=== PATIENT | male | born 1955 | race Caucasian/White ===

== ENCOUNTER 2017-11-16 10:30 | Inpatient (IN) | payer OTHER ==
[~2017-11-16] VITALS: Ht 175.3 cm; Wt 96.2 kg
[~2017-11-16 10:30] MED LIST: CLONAZEPAM1 MG PO; COLACE100 MG PO; DEMEROL50 MG/ML IJ; DOCUSATE SODIU100 MG PO; PERCOCET 5/3251 TAB PO
[2017-11-16] MEDS ORDERED: COZAAR25 MG PO (13:37)
[2017-11-16] MEDS ORDERED: NABUMETONE750 MG PO (13:38)
[2017-11-24] MEDS ORDERED: NEURONTIN800 MG PO (14:26)
[2017-11-24] MEDS ORDERED: COLACE100 MG PO (14:26)
[2017-11-24] MEDS ORDERED: CLONAZEPAM1 MG PO (14:26)
[2017-11-24] MEDS ORDERED: PERCOCET 5-3251 EACH PO (14:26)
[2017-11-24] MEDS ORDERED: AMOX-CLAV 875-1 EACH PO (14:26)
== END 2017-11-25 14:46 | disposition home or self-care (01) | DRG 460 ==
LOC: O/R 11-24 05:25 → PED 11-24 05:25 → SURH 11-24 10:30 → PED 11-24 15:37
PROVIDERS: Orthopaedic Surgery Orthopaedic Surgery of the Spine
PROC: 0SG10AJ Fusion of 2 or more Lumbar Vertebral Joints with Interbody Fusion Device, Posterior Approach, Anterior Column, Open Approach (ICD-10-PCS; 2017-11-24)
PROC: 0ST20ZZ Resection of Lumbar Vertebral Disc, Open Approach (ICD-10-PCS; 2017-11-24)
PROC: 07DS3ZZ Extraction of Vertebral Bone Marrow, Percutaneous Approach (ICD-10-PCS; 2017-11-24)
PROC: 0SG10A0 Fusion of 2 or more Lumbar Vertebral Joints with Interbody Fusion Device, Anterior Approach, Anterior Column, Open Approach (ICD-10-PCS; principal; 2017-11-24 13:00)
DX: M47.26 Other spondylosis with radiculopathy, lumbar region (principal); M51.16 Intervertebral disc disorders with radiculopathy, lumbar region; M48.061 Spinal stenosis, lumbar region without neurogenic claudication; I10 Essential (primary) hypertension

== ENCOUNTER 2018-06-22 13:44 | Outpatient (CLI) | payer OTHER ==
[~2018-06-22 13:44] MED LIST changes: +AMOX-CLAV 875-1 EACH PO; +COZAAR25 MG PO; +NABUMETONE750 MG PO; +NEURONTIN800 MG PO; +PERCOCET 5-3251 EACH PO
== END 2018-06-22 13:54 | disposition home or self-care (01) ==
LOC: RAD 501 13:44
DX: M54.5 Low back pain (principal); M54.2 Cervicalgia; M79.672 Pain in left foot

== ENCOUNTER 2025-02-27 08:30 | Inpatient (IN) | payer OTHER ==
[~2025-02-27] VITALS: Ht 175.3 cm; Wt 97.5 kg
[2025-02-27 09:56] VITALS: BP 162/98
[2025-02-27] MEDS ORDERED: TAMS0.4C PO (09:56)
[2025-02-27] MEDS ORDERED: ATACAND16 MG PO (09:56)
[2025-03-05] MEDS ORDERED: PERCOCET 5-3251 EACH PO (10:09)
[2025-03-05] MEDS ORDERED: AMOX-CLAV 875-1 EACH PO (10:09)
[2025-03-05] MEDS ORDERED: MEDROLPACK PO (10:09)
[2025-03-05] MEDS ORDERED: NEURONTIN800 MG PO (10:10)
[2025-03-05] MEDS ORDERED: COLACE100 MG PO (10:10)
[2025-03-05] MEDS ORDERED: GABAPENTIN100 M2 PO (10:10)
[2025-03-05] MEDS ORDERED: ZOFRAN8 MG PO (10:10)
[2025-03-05] MEDS ORDERED: CEFAZOLIN SODIUM 1,000 MG VIAL ONE (11:45)
[2025-03-05] MEDS ORDERED: VANCOMYCIN HCL 1,000 MG VIAL ONE ×2 (11:45→14:00)
[2025-03-05] MEDS ORDERED: 0.9 % SODIUM CHLORIDE 1,000 ML IV SCH (12:00)
[2025-03-05] MEDS ORDERED: ENALAPRILAT DIHYDRATE 1.25 MG/ML VIAL IV PRN (12:00)
[2025-03-05] MEDS ORDERED: PROMETHAZINE HCL 50 MG/ML AMPUL IM PRN (12:00)
[2025-03-05] MEDS ORDERED: DOCUSATE SODIUM 100MG CAP PO SCH (13:00)
[2025-03-05] MEDS ORDERED: MORPHINE SULFATE 4 MG/ML CARTRIDGE IV SCH (13:00)
[2025-03-05] MEDS ORDERED: METHYLPREDNISOLONE ACETATE 80 MG/ML VIAL ONE (14:00)
[2025-03-05] MEDS ORDERED: METHYLPREDNISOLONE SOD SUCC 125 MG VIAL ONE (14:00)
[2025-03-05] MEDS ORDERED: CEFAZOLIN SODIUM 1,000 MG VIAL IV ONE (14:45)
[2025-03-05] MEDS ORDERED: METHYLPREDNISOLONE ACETATE 80 MG/ML VIAL IM ONE (14:45)
[2025-03-05] MEDS ORDERED: VANCOMYCIN HCL 1,000 MG VIAL IR ONE (14:45)
[2025-03-05] MEDS ORDERED: VANCOMYCIN HCL 1,000 MG VIAL SPEPROC ONE (14:45)
[2025-03-05] MEDS ORDERED: METHYLPREDNISOLONE SOD SUCC 125 MG VIAL IV ONE (14:45)
[2025-03-05] MEDS ORDERED: VANCOMYCIN HCL 1,000 MG VIAL IV ONE (14:45)
[2025-03-05] MEDS ORDERED: IOVERSOL 320 MG/ML - 50 ML VIAL IV ONE (15:03)
[2025-03-05] MEDS ORDERED: METHYLPREDNISOLONE SOD SUCC 125 MG VIAL IV SCH (17:00)
[2025-03-05] MEDS ORDERED: CEFAZOLIN SODIUM 1,000 MG in 0.9 % SODIUM CHLORIDE 50 ML IV SCH (17:00)
[2025-03-05] MEDS ORDERED: DIPHENHYDRAMINE HCL 50 MG/ML VIAL 1ML ONE ×2 (17:44→22:38)
[2025-03-05] MEDS ORDERED: MORPHINE SULFATE 4 MG/ML VIAL IV ONE ×2 (18:50→21:00)
[2025-03-05] MEDS ORDERED: ACETAMINOPHEN 500 MG GEL..CAP PO SCH (20:00)
[2025-03-05] MEDS ORDERED: VANCOMYCIN HCL 1,000 MG VIAL IV SCH (21:00)
[2025-03-05] MEDS ORDERED: GABAPENTIN 800 MG TABLET PO SCH (21:00)
[2025-03-05 22:30] VITALS: BP 162/98; O2SAT 90
[2025-03-06] MEDS ORDERED: SODIUM CHLORIDE 0.45 % 1,000 ML IV SCH
[2025-03-06 00:55] VITALS: BP 162/93; O2SAT 95
[2025-03-06 04:55] LABS: BASO % 0.1 % (0.1-1.2); EOS # 0.00 (0.04-0.54); EOS % 0.0 % (0.7-7.0); LYMPH # 0.40 (1.18-3.74); LYMPH % 4.0 % (19.3-53.1); MEAN PLATELET VOLUME 10.40 fl (9.4-12.4); MONO # 0.20 (0.24-0.82); MONO % 2.0 % (4.7-12.5); NEUT # 9.23 (1.56-6.13); NEUT % 93.5 % (34.0-71.1); RED CELL DISTRIBUTION WIDTH 12.8 % (11.6-14.4)
[2025-03-06 05:16] LABS: BUN CREA RATIO 16.0 (7.0-25.0); CREATININE SERUM 1.32 mg/dL (0.70-1.30); GFR 53.62; GLUCOSE FASTING 175.0 mg/dL (65-100); OSMOLALITY SERUM 285.0 MOSM/KG (275-295)
[2025-03-06 05:44] VITALS: BP 129/79; O2SAT 96
[2025-03-06] MEDS ORDERED: OxyCODONE HCL 5 MG TABLET (ROXICODONE) PO PRN (06:01)
[2025-03-06 08:10] VITALS: BP 120/70; O2SAT 97
[2025-03-06] MEDS ORDERED: TAMSULOSIN HCL 0.4 MG CAP PO SCH (09:00)
[2025-03-06] MEDS ORDERED: CANDESARTAN CILEXETIL 16 MG TABLET PO SCH (09:00)
[2025-03-06 13:23] VITALS: BP 130/70; O2SAT 98
[2025-03-06 14:17] LABS: COVID-19 AG NEGATIVE (NEGATIVE)
[2025-03-06 21:32] VITALS: BP 120/62; O2SAT 100
[2025-03-07] VITALS (7 sets, daily range): BP systolic 108–154; BP diastolic 53–87; O2SAT 95–99
[2025-03-08] MEDS ORDERED: CEFAZOLIN SODIUM 1,000 MG VIAL ONE (00:06)
[2025-03-08 01:15] VITALS: BP 154/97; BP 99/56; O2SAT 98
[2025-03-08 04:15] VITALS: BP 109/63; O2SAT 96
[2025-03-08 07:51] VITALS: BP 129/77; O2SAT 97
== END 2025-03-08 10:26 | DRG 402 ==
LOC: SURH 03-05 08:30 → PED 03-05 11:31 → O/R 03-05 11:31 → SURH 03-05 16:00 → PED 03-05 19:35
PROVIDERS: ADMIT Orthopaedic Surgery Orthopaedic Surgery of the Spine; ATTEND Orthopaedic Surgery Orthopaedic Surgery of the Spine
PROC: 0SG30K1 Fusion of Lumbosacral Joint with Nonautologous Tissue Substitute, Posterior Approach, Posterior Column, Open Approach (ICD-10-PCS; 2025-03-05)
PROC: 0ST40ZZ Resection of Lumbosacral Disc, Open Approach (ICD-10-PCS; 2025-03-05)
PROC: 0SP004Z Removal of Internal Fixation Device from Lumbar Vertebral Joint, Open Approach (ICD-10-PCS; 2025-03-05)
PROC: 07DR0ZZ Extraction of Iliac Bone Marrow, Open Approach (ICD-10-PCS; 2025-03-05)
PROC: 0SG30A0 Fusion of Lumbosacral Joint with Interbody Fusion Device, Anterior Approach, Anterior Column, Open Approach (ICD-10-PCS; principal; 2025-03-05 16:00)
DX: M48.07 Spinal stenosis, lumbosacral region (principal); M54.17 Radiculopathy, lumbosacral region; M51.370 Other intervertebral disc degeneration, lumbosacral region with discogenic back pain only